=== PATIENT | female | born 1950 | race American Indian/Alaskan Native ===

== ENCOUNTER 2019-11-24 13:18 | Outpatient (CLI) | payer MEDICARE ==
--- NOTE | 2019-11-24 15:13 | Mammography Report ---
BILATERAL DIGITAL DIAGNOSTIC MAMMOGRAM WITH CAD -- 11/24/2019 BILATERAL COMPLETE BREAST ULTRASOUND INDICATION: Patient has history of right breast cancer status post lumpectomy 3 years prior. Patient has no current complaints. TECHNIQUE: Digital bilateral mammographic imaging was performed. Complete ultrasound of all four (4) quadrants was performed. This examination was interpreted with the benefit of Computer-Aided Detecti on (CAD) analysis. COMPARISON: Prior mammogram 11/03/2017 FINDINGS: Breast Density: There are scattered areas of fibroglandular density. MAMMOGRAPHIC FINDINGS: There is no evidence of dominant mass, suspicious calcifications or architectu ral distortion in either breast. There is stable benign postlumpectomy change seen in the right breas t. There has been no significant change compared with the prior examination. ULTRASOUND FINDINGS: Complete sonographic evaluation of all 4 quadrants and retroareolar region was p erformed. Right breast: Complete ultrasound of the right breast reveals normal fibroglandular tissue. No suspic ious cystic or solid lesion identified. Left breast: Complete ultrasound of the left breast reveals normal fibroglandular tissue. No suspicio us cystic or solid lesion identified. IMPRESSION: 1. No suspicious mammographic or sonographic abnormality identified in either breast. Follow up recommendation: Routine yearly BI-RADS Category 2: Benign. A "normal" or negative report should not discourage follow up or biopsy of a clinically significant f inding. A written summary of these findings will be mailed to the patient. The patient will be entered into a mammography reporting system which will generate a reminder letter for the patient's next appointmen t at the appropriate interval. According to the [employer], yearly mammograms are recommended starting at age 40 and continuing as long as a woman is in good health. Breast MRI is recommended for women with an luis manuel roximately 20-25% or greater lifetime risk of breast cancer, including women with a strong family his tory of breast or ovarian cancer and women who have been treated for Hodgkin's disease. Signer Name: Talisha Farris MD Signed: 11/24/2019 3:09 PM Workstation Name: [id number]
== END 2019-11-24 13:19 | disposition home or self-care (01) ==
LOC: SPVWC 13:18
PROVIDERS: ATTEND Surgery
DX: R92.8 Other abnormal and inconclusive findings on diagnostic imaging of breast (principal); Z85.3 Personal history of malignant neoplasm of breast
CPT/HCPCS: 77066